=== PATIENT | female | born 1990 | race Caucasian/White ===

== ENCOUNTER 2017-01-23 14:19 | Emergency (ER) | payer BC ==
[~2017-01-23] VITALS: Ht 172.7 cm; Wt 136.1 kg
--- NOTE | 2017-01-23 14:41 | PHYS DOC ---
Past Medical History Past Medical History: No Pertinent History Additional Past Medical Histor: morbid obesity Past Surgical History: Tonsillectomy Alcohol Use: Occasionally Drug Use: None Adult General Chief Complaint Chief Complaint: KNEE INJURY HPI HPI Patient is a 26 year old female who presents with moderate to severe acute pain to the right knee just prior to arrival while getting into the car thinks she dislocated her right patella. Prior history of left patellar dislocation but no surgical intervention or orthopedic evaluation post injury. Denies any other injury. Review of Systems Review of Systems Constitutional: Denies fever or chills [] Eyes: Denies change in visual acuity, redness, or eye pain [] HENT: Denies nasal congestion or sore throat [] Respiratory: Denies cough or shortness of breath [] Cardiovascular: No additional information not addressed in HPI [] GI: Denies abdominal pain, nausea, vomiting, bloody stools or diarrhea [] : Denies dysuria or hematuria [] Musculoskeletal: Denies back pain or joint pain [] Integument: Denies rash or skin lesions [] Neurologic: Denies headache, focal weakness or sensory changes [] Endocrine: Denies polyuria or polydipsia [] Current Medications Current Medications Current Medications Medications (Trade) Dose Ordered Sig/Moreno Start Time Stop Time Status Last Admin Dose Admin Hydromorphone HCl (Dilaudid) 0.5 mg 1X ONCE 01/23/17 14:45 01/23/17 14:46 DC 01/23/17 15:13 0.5 MG Allergies Allergies Allergies Coded Allergies Type Severity Reaction Last Updated Verified No Known Drug Allergies 04/07/16 No Physical Exam Physical Exam Constitutional: Well developed, well nourished, no acute distress, non-toxic appearance. [] HENT: Normocephalic, atraumatic, bilateral external ears normal, oropharynx moist, no oral exudates, nose normal. [] Eyes: PERRLA, EOMI, conjunctiva normal, no discharge. [] Neck: Normal range of motion, no tenderness, supple, no stridor. [] Cardiovascular:Heart rate regular rhythm, no murmur [] Lungs & Thorax: Bilateral breath sounds clear to auscultation [] Abdomen: Bowel sounds normal, soft, no tenderness, no masses, no pulsatile masses. [] Skin: Warm, dry, no erythema, no rash. [] Back: No tenderness, no CVA tenderness. [] Extremities: No tenderness, no cyanosis, no clubbing, ROM intact, no edema. Except for right knee: Patient held knee in flexion with palpable lateral dislocation of the patella, no hip or ankle pain or complaints [] Neurologic: Alert and oriented X 3, normal motor function, normal sensory function, no focal deficits noted. [] Psychologic: Affect normal, judgement normal, mood normal. [] Current Patient Data Vital Signs Vital Signs Date Time Temp Pulse Resp B/P (MAP) Pulse Ox O2 Delivery O2 Flow Rate FiO2 01/23/17 16:00 92 33 145/82 (103) 97 01/23/17 14:19 97.7 Room Air 97.7 EKG EKG [] Radiology/Procedures Radiology/Procedures Postreduction right knee x-ray [no obvious fracture dislocation was reduced.] Course & Med Decision Making Course & Med Decision Making Pertinent Labs and Imaging studies reviewed. (See chart for details) Procedure: Right patellar dislocation reduction: Leg was gently extended and lateral to medial pressure was applied to the lateral patella with quick easy atraumatic reduction. Patient tolerated procedure well no complications. [] Dragon Disclaimer Dragon Disclaimer This electronic medical record was generated, in whole or in part, using a voice recognition dictation system. Departure Departure Impression: Primary Impression: Lateral dislocation of right patella, initial encounter Disposition: 01 HOME, SELF-CARE Admitting Physician: Other Condition: IMPROVED Referrals: NU ESCALERA MD (PCP) RETA GARVEY MD Patient Instructions: Patellar Dislocation Additional Instructions: Wear knee immobilizer, crutches weight-bear as tolerated and follow-up with orthopedics. Scripts Naproxen (NAPROXEN) 375 Mg Tablet 1 TAB PO BID, #20 TAB 0 Refills Prov: ALEXANDER PARKS MD 01/23/17 ALEXANDER PARKS MD Jan 23, 2017 14:40
[2017-01-23] MEDS ORDERED: HYDROmorphone 2 MG/ML VIAL IV ONE (14:45)
--- NOTE | 2017-01-23 15:32 | RAD ---
3 views right knee radiograph 01/23/2017 Clinical indication: Dislocated patella. Right knee pain. Comparison: None. Findings: No acute fracture or traumatic malalignment. Joint spaces maintained. No significant knee joint effusion. Impression: No acute osseous abnormality.
[2017-01-23] MEDS ORDERED: NAPR375T3 PO (15:34)
[2017-01-23 16:00] VITALS: BP 145/82
== END 2017-01-23 16:15 | disposition home or self-care (01) ==
LOC: ER 14:19
DX: S83.014A Lateral dislocation of right patella, initial encounter (principal); E66.01 Morbid (severe) obesity due to excess calories; Z68.42 Body mass index [BMI] 45.0-49.9, adult; X58.XXXA Exposure to other specified factors, initial encounter; Y93.89 Activity, other specified; Y92.89 Other specified places as the place of occurrence of the external cause; Y99.8 Other external cause status
CPT/HCPCS: 27560; 73562; 96374; 99284; J1170

== ENCOUNTER → 2021-05-04 | Outpatient (CLI) | payer BC ==
[~2021-05-04] MED LIST: NAPR-695 PO
--- NOTE | 2021-05-04 09:14 | RAD ---
EXAM: US BREAST BILAT 05/04/2021 8:05 AM CLINICAL INDICATION: Bilateral breast lumps felt by provider COMPARISON: None TECHNIQUE: Grayscale and color Doppler ultrasound imaging of the outer breast performed in the area of concern. FINDINGS: In the right breast at 9:00, 6 cm from nipple there is an ovoid hypoechoic circumscribed mass measuri ng 1.3 x 0.6 x 0.8 cm. No posterior acoustic shadowing or internal vascularity. No right axillary lym phadenopathy. There is normal fibroglandular tissue in the outer left breast. No mass or cyst in the outer left leonid ast. No left axillary lymphadenopathy. IMPRESSION: 1. Probably benign circumscribed 1.3 cm mass in the right breast at 9:00, likely a fibroadenoma. Mick mmend 6 month follow-up ultrasound to ensure stability. 2. No sonographic abnormality in the outer left breast. BI-RADS 3-probably benign. Recommend six-month follow-up ultrasound of the right breast. Electronically signed by: Natalya Sharpe MD (05/04/2021 9:12 AM) [id number]
== END ==
LOC: US 07:50
PROVIDERS: ATTEND Obstetrics & Gynecology
DX: N63.11 Unspecified lump in the right breast, upper outer quadrant (principal)
CPT/HCPCS: 76641-50